=== PATIENT | male | born 1935 | race Caucasian/White ===

== ENCOUNTER 2021-08-20 16:32 | Observation (INO) | payer MEDICARE, BC ==
[2021-08-20 17:11] LABS: #Basophils 0.1 10x3/uL (0.0-0.2); #Eosinphils 0.3 10x3/uL (0.0-0.5); #Monocytes 1.2 10x3/uL (0.0-1.1); #Neutrophils 6.2 10x3/uL (1.5-8.4); %Basophils 0.5 % (0.0-2.0); %Eosinophils 2.9 % (0.0-6.0); %Lymphocytes 19.3 % (18.0-47.0); %Monocytes 12.3 % (0.0-10.0); %Neutrophils 64.6 % (40.0-75.0); Hemoglobin 11.5 g/dL (13.5-17.5); Mean Corpuscular HGB CONC 31.4 g/dL (32.0-36.0); Mean Corpuscular Hemoglobin 27.3 pg (27.0-33.0); Mean Corpuscular Volume 86.7 fl (81.2-95.1); Mean Platelet Volume 10.6 fl (7.4-10.4); Platelet Count 226 10x3/uL (150-450); RBC Distribution Width 17.5 % (11.5-14.5); Red Blood Cell (RBC) Count 4.22 10x6/uL (4.32-5.72); White Blood Cell (WBC) Count 9.7 10x3/uL (3.5-10.5)
[2021-08-20 17:22] LABS: INR-International Normal Ratio 1.1; PTT 28.8 sec (22.0-33.0); Prothrombin Time 11.9 sec (9.5-12.1)
[2021-08-20 17:27] LABS: ALT (SGPT) 30 U/L (8-55); AST (SGOT) 34 U/L (5-34); Albumin 3.6 g/dL (3.4-4.8); Alkaline Phosphatase 76 U/L (40-110); Anion Gap 13 mmol/L (10-20); BUN (Urea Nitrogen) 31 mg/dL (8.4-25.7); Bilirubin, Total 0.6 mg/dL (0.2-1.2); CK (CPK) 77 U/L (30-200); Calc. Creatinine Clearance 0 mL/min (70-130); Calcium 8.3 mg/dL (7.8-10.44); Carbon Dioxide 25 mmol/L (23-31); Chloride 107 mmol/L (98-107); Globulin 2.5 g/dL (2.4-3.5); Glucose 94 mg/dL (83-110); Lipase 48 U/L (8-78); Potassium 3.8 mmol/L (3.5-5.1); Protein, Total 6.1 g/dL (5.8-8.1); Sodium 141 mmol/L (136-145)
[2021-08-20 17:30] LABS: Digoxin 0.91 ng/mL (0.8-2.0)
[2021-08-20 18:16] LABS: CKMB 3.8 ng/mL (0-6.6)
[2021-08-20] MEDS ORDERED: Aspirin Chewable 81 MG TAB ONE (19:49)
[2021-08-20] MEDS ORDERED: Furosemide 40 MG/4 ML VIAL ONE (19:49)
[2021-08-20 20:20] LABS: SARS-CoV-2 NAA Rapid Test Not Detected (NotDetected)
[2021-08-20] MEDS ORDERED: Atorvastatin Calcium 40 MG TAB PO SCH (23:15)
[2021-08-20] MEDS ORDERED: Apixaban 5 MG TAB PO SCH (23:15)
[2021-08-20] MEDS: Potassium Chloride 20 MEQ TAB PO SCH (23:23)
[2021-08-20 23:34] LABS: Troponin I 6.039 ng/mL (< 0.028)
[2021-08-20] MEDS: Nitroglycerin 2% Ointment 1 INCH/1 GM Packet TOP SCH (23:35)
[2021-08-21 01:28] VITALS: BMI 26.0
[2021-08-21] MEDS ORDERED: Furosemide 40 MG/4 ML VIAL SLOW IVP SCH ×2 (02:00→02:45)
[2021-08-21] MEDS: Potassium Chloride 20 MEQ TAB PO SCH (02:35)
[2021-08-21 04:15] LABS: #Eosinphils 0.3 10x3/uL (0.0-0.5); #Monocytes 1.1 10x3/uL (0.0-1.1); #Neutrophils 5.7 10x3/uL (1.5-8.4); %Basophils 0.4 % (0.0-2.0); %Eosinophils 3.6 % (0.0-6.0); %Lymphocytes 22.5 % (18.0-47.0); %Monocytes 12.2 % (0.0-10.0); %Neutrophils 60.9 % (40.0-75.0); Hemoglobin 11.8 g/dL (13.5-17.5); Mean Corpuscular Hemoglobin 27.3 pg (27.0-33.0); Mean Corpuscular Volume 85.2 fl (81.2-95.1); Mean Platelet Volume 10.8 fl (7.4-10.4); Platelet Count 232 10x3/uL (150-450); RBC Distribution Width 17.5 % (11.5-14.5); Red Blood Cell (RBC) Count 4.33 10x6/uL (4.32-5.72); White Blood Cell (WBC) Count 9.4 10x3/uL (3.5-10.5)
[2021-08-21 04:16] LABS: Anion Gap 14 mmol/L (10-20); BUN (Urea Nitrogen) 29 mg/dL (8.4-25.7); Calc. Creatinine Clearance 63 mL/min (70-130); Calcium 8.5 mg/dL (7.8-10.44); Carbon Dioxide 27 mmol/L (23-31); Chloride 104 mmol/L (98-107); Glucose 78 mg/dL (83-110); Potassium 3.7 mmol/L (3.5-5.1); Sodium 141 mmol/L (136-145)
[2021-08-21 04:29] LABS: Troponin I 5.824 ng/mL (< 0.028)
[2021-08-21 08:33] VITALS: BP 157/77; TEMP 98.7
[2021-08-21] MEDS: Nitroglycerin 2% Ointment 1 INCH/1 GM Packet TOP SCH (08:59)
[2021-08-21] MEDS ORDERED: Donepezil HCl 5 MG TAB PO SCH (09:00)
[2021-08-21] MEDS ORDERED: Gabapentin 300 MG CAP PO SCH (09:00)
[2021-08-21] MEDS ORDERED: buPROPion 75 MG TAB PO SCH (09:00)
[2021-08-21] MEDS ORDERED: Spironolactone 25 MG TAB PO SCH (09:00)
[2021-08-21] MEDS ORDERED: Lisinopril 2.5 MG TAB PO SCH (09:00)
[2021-08-21] MEDS ORDERED: Apixaban 5 MG TAB PO SCH (09:00)
[2021-08-21] MEDS ORDERED: Citalopram 20 MG TAB PO SCH (09:00)
[2021-08-21] MEDS ORDERED: Aspirin 81 mg Enteric Coated Tablet PO SCH (09:00)
[2021-08-21] MEDS ORDERED: Atorvastatin Calcium 40 MG TAB PO SCH (21:00)
== END 2021-08-21 14:20 | disposition home or self-care (01) ==
LOC: CSHERS 16:32 → CSHTELE 21:57 → OBSVTOIN 21:57 → INTOOBSV 21:57
PROVIDERS: ADMIT Family Medicine; ATTEND Hospitalist
DX: I11.0 Hypertensive heart disease with heart failure (principal); I50.9 Heart failure, unspecified; I21.4 Non-ST elevation (NSTEMI) myocardial infarction; I25.119 Atherosclerotic heart disease of native coronary artery with unspecified angina pectoris; I48.0 Paroxysmal atrial fibrillation; I73.9 Peripheral vascular disease, unspecified; Z79.899 Other long term (current) drug therapy; Z79.01 Long term (current) use of anticoagulants; Z79.82 Long term (current) use of aspirin; Z86.73 Personal history of transient ischemic attack (TIA), and cerebral infarction without residual deficits; Z85.46 Personal history of malignant neoplasm of prostate; R77.8 Other specified abnormalities of plasma proteins; E78.5 Hyperlipidemia, unspecified; F03.90 Unspecified dementia, unspecified severity, without behavioral disturbance, psychotic disturbance, mood disturbance, and anxiety; Z20.822 Contact with and (suspected) exposure to COVID-19
CPT/HCPCS: 71045; 71275; 80048; 80053; 80162; 82550; 82553; 83690; 83735; 83880; 84443; 84484 ×3; 85025 ×2; 85610; 85730; 93005 ×2; U0002; 36415; 93010; 96374; J1940

== ENCOUNTER 2022-10-30 15:55 | Inpatient (IN) | payer MEDICARE, BC ==
[2022-10-30 16:48] LABS: Bilirubin Neg (Negative); Blood, Urine 25 (Negative); Clarity Cloudy (Clear); Glucose, Urine (Dipstick) Normal (Negative); Ketone, Urine Negative (Negative); Leukocyte 100 (Negative); Nitrite Positive (Negative); Protein, Urine (Dipstick) 15 mg/dl (Neg-Trace); Specific Gravity, Urine 1.015 (1.005-1.030)
[2022-10-30 16:54] LABS: #Eosinphils 0.3 10x3/uL (0.0-0.5); #Monocytes 0.6 10x3/uL (0.0-1.1); #Neutrophils 3.8 10x3/uL (1.5-8.4); %Basophils 0.5 % (0.0-2.0); %Eosinophils 4.8 % (0.0-6.0); %Lymphocytes 19.1 % (18.0-47.0); %Monocytes 10.4 % (0.0-10.0); %Neutrophils 64.9 % (40.0-75.0); Hemoglobin 12.5 g/dL (13.5-17.5); Mean Corpuscular HGB CONC 32.7 g/dL (32.0-36.0); Mean Corpuscular Hemoglobin 31.1 pg (27.0-33.0); Mean Platelet Volume 10.5 fl (7.4-10.4); Platelet Count 142 10x3/uL (150-450); RBC Distribution Width 14.6 % (11.5-14.5); Red Blood Cell (RBC) Count 4.02 10x6/uL (4.32-5.72); White Blood Cell (WBC) Count 5.9 10x3/uL (3.5-10.5)
[2022-10-30 17:02] LABS: Bacteria/HPF 4+ HPF (None Seen); Squamous Epithelial 0-3 HPF (0-3)
[2022-10-30] MEDS ORDERED: Nitroglycerin 2% Ointment 1 INCH/1 GM Packet ONE (17:03)
[2022-10-30] MEDS ORDERED: Aspirin Chewable 81 MG TAB ONE (17:03)
[2022-10-30 17:14] LABS: ALT (SGPT) 22 U/L (8-55); AST (SGOT) 32 U/L (5-34); Albumin 3.9 g/dL (3.4-4.8); Alkaline Phosphatase 82 U/L (40-110); Anion Gap 14 mmol/L (10-20); BUN (Urea Nitrogen) 32 mg/dL (8.4-25.7); Bilirubin, Total 0.8 mg/dL (0.2-1.2); Calc. Creatinine Clearance 0 mL/min (70-130); Calcium 8.6 mg/dL (7.8-10.44); Carbon Dioxide 25 mmol/L (23-31); Chloride 106 mmol/L (98-107); Estimated GFR 59; Globulin 2.2 g/dL (2.4-3.5); Glucose 81 mg/dL (83-110); Lipase 34 U/L (8-78); Potassium 3.6 mmol/L (3.5-5.1); Protein, Total 6.1 g/dL (5.8-8.1); Sodium 141 mmol/L (136-145)
[2022-10-30] MEDS ORDERED: cefTRIAXone (ROCEPHIN) 1 GM VIAL ONE (17:27)
[2022-10-30 17:36] LABS: CKMB 3.6 ng/mL (0-6.6)
[2022-10-30] MEDS ORDERED: Senokot S 8.6-50 MG TAB PO PRN (19:09)
[2022-10-30] MEDS ORDERED: Calcium Carbonate 500 MG ChewTAB PO PRN (19:09)
[2022-10-30] MEDS ORDERED: Guaifenesin DM 100-10/5 ML UDCUP PO PRN (19:09)
[2022-10-30] MEDS ORDERED: Ondansetron PF 4 MG/2 ML Vial IVP PRN (19:09)
[2022-10-30] MEDS ORDERED: Nitroglycerin 0.4 MG TAB (25 Tab Bottle) SL PRN (19:13)
[2022-10-30] MEDS ORDERED: Apixaban 5 MG TAB PO SCH (23:15)
[2022-10-30] MEDS ORDERED: Atorvastatin Calcium 40 MG TAB PO SCH (23:15)
[2022-10-30] MEDS ORDERED: Gabapentin 300 MG CAP PO SCH (23:15)
[2022-10-30 23:46] VITALS: BMI 25.0
[2022-10-30] MEDS: Acetaminophen 325 MG TAB PO PRN (23:47)
[2022-10-30 23:50] LABS: CKMB 33.6 ng/mL (0-6.6)
[2022-10-31] MEDS ORDERED: Lactated Ringer's 1,000 ML IV SCH (00:15)
[2022-10-31] MEDS ORDERED: Nitroglycerin 2% Ointment 1 INCH/1 GM Packet TOP SCH (00:15)
[2022-10-31] MEDS ORDERED: Melatonin 3 MG TAB PO SCH (00:30)
[2022-10-31 07:10] LABS: CKMB 31.9 ng/mL (0-6.6)
[2022-10-31] MEDS ORDERED: Vit A,C & E/Lutein/Minerals Tablet PO SCH (09:00)
[2022-10-31] MEDS ORDERED: Digoxin 0.125 MG TAB PO SCH (09:00)
[2022-10-31] MEDS ORDERED: Apixaban 5 MG TAB PO SCH (09:00)
[2022-10-31] MEDS: Aspirin 81 mg Enteric Coated Tablet PO SCH (10:04)
[2022-10-31] MEDS: Lisinopril 10 MG TAB PO SCH (10:04)
[2022-10-31] MEDS: Bupropion 150 MG XL TAB PO SCH (10:06)
[2022-10-31] MEDS: Multivitamin W/ Minerals 1 TAB PO SCH (10:06)
[2022-10-31] MEDS: Donepezil HCl 5 MG TAB PO SCH (10:06)
[2022-10-31] MEDS: Citalopram 20 MG TAB PO SCH (10:06)
[2022-10-31] MEDS: Potassium Chloride 20 MEQ TAB PO SCH ×2 (10:06→17:09)
[2022-10-31] MEDS: Furosemide 40 MG TAB PO SCH (10:07)
[2022-10-31] MEDS: Vit A,C & E/Lutein/Minerals Tablet PO SCH (10:07)
[2022-10-31] MEDS ORDERED: Mag-Al Plus 1200 MG/1200 MG/120 MG/30 ML UDCUP PO PRN (17:55)
[2022-10-31] MEDS: PATIENT'S HOME MEDICATION PO SCH ×2 (20:36→20:42)
[2022-10-31] MEDS: Atorvastatin Calcium 40 MG TAB PO SCH (20:43)
[2022-10-31] MEDS: Gabapentin 300 MG CAP PO SCH (20:44)
[2022-11-01] MEDS: Furosemide 40 MG TAB PO SCH (08:51)
[2022-11-01] MEDS: Donepezil HCl 5 MG TAB PO SCH (08:51)
[2022-11-01] MEDS: Potassium Chloride 20 MEQ TAB PO SCH ×2 (08:51→17:05)
[2022-11-01] MEDS: Aspirin 81 mg Enteric Coated Tablet PO SCH (08:51)
[2022-11-01] MEDS: Vit A,C & E/Lutein/Minerals Tablet PO SCH (08:51)
[2022-11-01] MEDS: Multivitamin W/ Minerals 1 TAB PO SCH (08:51)
[2022-11-01] MEDS: Citalopram 20 MG TAB PO SCH (08:51)
[2022-11-01] MEDS: Lisinopril 10 MG TAB PO SCH (08:51)
[2022-11-01] MEDS: Bupropion 150 MG XL TAB PO SCH (08:51)
[2022-11-01] MEDS: Polyethylene Glycol 3350 17 GM Packet PO SCH (08:58)
[2022-11-01] MEDS ORDERED: Communication Order-Pharmacy FS SCH (11:00)
[2022-11-01] MEDS: Gabapentin 300 MG CAP PO SCH (21:01)
[2022-11-01] MEDS: Atorvastatin Calcium 40 MG TAB PO SCH (21:02)
[2022-11-01] MEDS: PATIENT'S HOME MEDICATION PO SCH ×2 (21:02→21:03)
[2022-11-02] MEDS: Bupropion 150 MG XL TAB PO SCH (05:55)
[2022-11-02] MEDS: Aspirin 81 mg Enteric Coated Tablet PO SCH (05:55)
[2022-11-02] MEDS: Donepezil HCl 5 MG TAB PO SCH (05:55)
[2022-11-02] MEDS: Citalopram 20 MG TAB PO SCH (05:55)
[2022-11-02] MEDS: Multivitamin W/ Minerals 1 TAB PO SCH (05:55)
[2022-11-02] MEDS: Lisinopril 10 MG TAB PO SCH (05:55)
[2022-11-02] MEDS: Potassium Chloride 20 MEQ TAB PO SCH (05:55)
[2022-11-02] MEDS: Vit A,C & E/Lutein/Minerals Tablet PO SCH (05:56)
[2022-11-02 06:04] LABS: #Eosinphils 0.3 10x3/uL (0.0-0.5); #Monocytes 0.7 10x3/uL (0.0-1.1); %Basophils 0.3 % (0.0-2.0); %Eosinophils 5.1 % (0.0-6.0); %Lymphocytes 31.6 % (18.0-47.0); %Monocytes 11.4 % (0.0-10.0); %Neutrophils 51.3 % (40.0-75.0); Hemoglobin 13.4 g/dL (13.5-17.5); Mean Corpuscular HGB CONC 32.7 g/dL (32.0-36.0); Mean Corpuscular Hemoglobin 30.9 pg (27.0-33.0); Mean Corpuscular Volume 94.7 fl (81.2-95.1); Mean Platelet Volume 10.5 fl (7.4-10.4); Platelet Count 132 10x3/uL (150-450); RBC Distribution Width 14.9 % (11.5-14.5); Red Blood Cell (RBC) Count 4.33 10x6/uL (4.32-5.72); White Blood Cell (WBC) Count 5.9 10x3/uL (3.5-10.5)
[2022-11-02 06:11] LABS: PTT 33.6 sec (22.0-33.0); Prothrombin Time 11.2 sec (9.5-12.1)
[2022-11-02 06:34] LABS: ALT (SGPT) 20 U/L (8-55); AST (SGOT) 33 U/L (5-34); Albumin 3.6 g/dL (3.4-4.8); Alkaline Phosphatase 82 U/L (40-110); Anion Gap 12 mmol/L (10-20); BUN (Urea Nitrogen) 21 mg/dL (8.4-25.7); Bilirubin, Total 0.8 mg/dL (0.2-1.2); Calc. Creatinine Clearance 74 mL/min (70-130); Calcium 8.8 mg/dL (7.8-10.44); Carbon Dioxide 27 mmol/L (23-31); Chloride 105 mmol/L (98-107); Estimated GFR 83; Globulin 2.5 g/dL (2.4-3.5); Glucose 82 mg/dL (83-110); Potassium 4.1 mmol/L (3.5-5.1); Protein, Total 6.1 g/dL (5.8-8.1); Sodium 140 mmol/L (136-145)
[2022-11-02] MEDS: Polyethylene Glycol 3350 17 GM Packet PO SCH (07:54)
[2022-11-02] MEDS ORDERED: Lidocaine 1% (PF) 30 ML VIAL ONE (07:59)
[2022-11-02] MEDS ORDERED: Nitroglycerin 50 MG/250 ML BOT 250 ML ONE (08:02)
[2022-11-02] MEDS ORDERED: Bivalirudin 250 MG VIAL ONE (08:02)
[2022-11-02] MEDS ORDERED: Verapamil 5 MG/2 ML VIAL ONE (08:02)
[2022-11-02] MEDS ORDERED: Heparin 10,000 UNITS/ 10 ML VIAL ONE (08:02)
[2022-11-02] MEDS: Furosemide 40 MG TAB PO SCH (08:26)
[2022-11-02] MEDS ORDERED: Digoxin 0.125 MG TAB PO SCH (09:00)
[2022-11-02] MEDS ORDERED: Midazolam HCl 2 mg/2 ml Vial ONE (09:26)
[2022-11-02] MEDS ORDERED: Fentanyl 100 MCG/2 ML VIAL ONE (09:26)
[2022-11-02] MEDS ORDERED: Nitroglycerin 0.4 MG TAB (25 Tab Bottle) SL PRN (10:31)
[2022-11-02] MEDS ORDERED: Acetaminophen/Codeine 30-300mg Tablet PO PRN ×2 (10:31)
[2022-11-02] MEDS ORDERED: Sodium Chloride 0.9% 200 ML IV PRN (10:31)
[2022-11-02] MEDS ORDERED: Sodium Chloride 0.9% 1,000 ML IV SCH (10:45)
[2022-11-02] MEDS: Acetaminophen 325 MG TAB PO PRN (15:00)
[2022-11-02 15:40] VITALS: BP 128/76; TEMP 98.5
[2022-11-02] MEDS ORDERED: Iopamidol 300 61% 100 ML VIAL FS ONE (15:50)
[2022-11-02] MEDS ORDERED: Apixaban 5 MG TAB PO SCH (21:00)
== END 2022-11-02 17:20 | disposition home health service (06) | DRG 281 ==
LOC: CSHERS 15:55 → OBSVTOIN 22:58 → CSHTELE 22:58
PROVIDERS: ADMIT Student in an Organized Health Care Education/Training Program; ATTEND Internal Medicine
PROC: 5A09457 Assistance with Respiratory Ventilation, 24-96 Consecutive Hours, Continuous Positive Airway Pressure (ICD-10-PCS; 2022-10-31)
PROC: 4A023N7 Measurement of Cardiac Sampling and Pressure, Left Heart, Percutaneous Approach (ICD-10-PCS; principal; 2022-11-02)
PROC: B2111ZZ Fluoroscopy of Multiple Coronary Arteries using Low Osmolar Contrast (ICD-10-PCS; 2022-11-02)
PROC: B2151ZZ Fluoroscopy of Left Heart using Low Osmolar Contrast (ICD-10-PCS; 2022-11-02)
DX: I21.4 Non-ST elevation (NSTEMI) myocardial infarction (principal); I13.0 Hypertensive heart and chronic kidney disease with heart failure and stage 1 through stage 4 chronic kidney disease, or unspecified chronic kidney disease; I50.22 Chronic systolic (congestive) heart failure; I48.11 Longstanding persistent atrial fibrillation; N39.0 Urinary tract infection, site not specified; I25.10 Atherosclerotic heart disease of native coronary artery without angina pectoris; E78.5 Hyperlipidemia, unspecified; I73.9 Peripheral vascular disease, unspecified; N18.2 Chronic kidney disease, stage 2 (mild); F03.90 Unspecified dementia, unspecified severity, without behavioral disturbance, psychotic disturbance, mood disturbance, and anxiety; C61 Malignant neoplasm of prostate; I48.0 Paroxysmal atrial fibrillation; Z98.49 Cataract extraction status, unspecified eye; Z90.79 Acquired absence of other genital organ(s); Z95.820 Peripheral vascular angioplasty status with implants and grafts; Z98.890 Other specified postprocedural states; I25.2 Old myocardial infarction; Z88.0 Allergy status to penicillin; Z79.899 Other long term (current) drug therapy; Z88.1 Allergy status to other antibiotic agents; Z86.73 Personal history of transient ischemic attack (TIA), and cerebral infarction without residual deficits; Z88.8 Allergy status to other drugs, medicaments and biological substances; G62.9 Polyneuropathy, unspecified
CPT/HCPCS: 36415; 71045; 80053; 81003; 81015; 82553; 83690; 83735; 83880; 84484; 85025; 85610; 85730; 87040; 87077; 87086; 87186; 93005; 93010; 93306; 93458; 94760; 96365; 99152; 99153; C1760; C1769; C1887; G0378; J0583; J0696; J1644; J1650; J2001; J2250; J3010; J7050; J7120

== ENCOUNTER 2023-08-08 11:59 | Emergency (ER) | payer MEDICARE, BC | END 2023-08-08 13:35 | disposition home or self-care (01) | LOC: CSHERS 11:59 | DX: T83.018A Breakdown (mechanical) of other urinary catheter, initial encounter (principal) | CPT/HCPCS: 99283 ==